=== PATIENT | male | born 1940 | race Caucasian/White ===

== ENCOUNTER 2020-12-04 09:07 | Day surgery (SDC) | payer MEDICARE, BC ==
[2020-12-01 08:36] VITALS: BMI 31.8
[~2020-12-04 09:07] MED LIST: DEXAMETHASONE SOD PHOSPHATE 4 MG/ML 1 ML VIAL IV ONE; DEXAMETHASONE SOD PHOSPHATE 4 MG/ML 1 ML VIAL IV PRN; FAMOTIDINE 20 MG/2 ML VIAL IV PRN; LACTATED RINGERS 1,000 ML IV SCH; ONDANSETRON 4 MG/2 ML VIAL IVP ONE; ONDANSETRON 4 MG/2 ML VIAL IVP PRN; OXYMETAZOLINE 0.05% NASL SPRAY 1 SPRAY BOTTLE EA NOSTRIL PRN
[2020-12-04 10:29] LABS: Glucose,Whole Blood 136 mg/dL (75-99)
[2020-12-04] MEDS ORDERED: SUCCINYLCHOLINE CHLORIDE VIAL 200 MG/10 ML VIAL IV ONE (11:18)
[2020-12-04] MEDS ORDERED: MIDAZOLAM 2 MG/2 ML VIAL ONE (11:18)
[2020-12-04] MEDS ORDERED: fentaNYL (PF) 50 MCG/ML 2 ML AMP ONE (11:18)
[2020-12-04] MEDS ORDERED: DEXAMETHASONE SOD PHOSPHATE 10 MG/ML 1 ML VIAL ONE (11:18)
[2020-12-04] MEDS ORDERED: PROPOFOL 10 MG/ML 20 ML VIAL IV ONE (11:18)
[2020-12-04] MEDS ORDERED: LIDOCAINE 1% INJ 10MG/ML (20 ML MDV) ONE (11:18)
[2020-12-04] MEDS ORDERED: ePHEDrine SULFATE/0.9% NACL/PF 50 MG/5 ML SYRINGE IV ONE (11:18)
[2020-12-04] MEDS ORDERED: LIDOCAINE 1%-EPI 1:100,000 20 ML VIAL SUBMUCOSAL ONE ×3 (11:44→11:46)
[2020-12-04] MEDS ORDERED: BUPIVACAINE-EPI 0.5%-1:200,000 10 ML VIAL SQ ONE ×3 (11:45→11:46)
[2020-12-04] MEDS ORDERED: BACITRACIN ZINC 500 UNIT/GM OINT 28.4 GM TUBE TOPICAL ONE (11:45)
[2020-12-04 12:49] VITALS: TEMP 96.8
--- NOTE | 2020-12-04 12:51 | P.OP ---
Date of Procedure: 12/04/20 Preoperative Diagnosis: Chronic sinusitis, deviated nasal septum, left-sided nasal polyp Postoperative Diagnosis: Same Procedure(s) Performed: Functional endoscopic sinus surgery with polypectomy and septoplasty Anesthesia: KEYONNA Surgeon: Med Lopez Estimated Blood Loss (ml): 10 Pathology: other (Sinonasal) Condition: stable Disposition: PACU Indications for Procedure: This patient has chronic sinusitis and what appeared to be a polyp on the left side. He has bilateral sinus disease with the left side is significantly worse. He was also found have a severe left septal deviation with obstruction. He has failed medical therapy and wished to proceed forward with sinus surgery. All risks, benefits, and alternative therapies were discussed. Consent was obtained and all questions were answered. Operative Findings: Patient had a severe left septal deviation. In addition the patient was found have a left-sided polyp with obstruction and bilateral sinus disease. Description of Procedure: This patient was taken to the operative room placed in the supine position. A general inhalation anesthetic was administered the patient by mask and subsequently intubated with a cuffed endotracheal tube by the department of anesthesia with a functioning IV line in place. The patient was monitored throughout the entire case by the department of anesthesia. 10 minutes were allowed wait for full vasoconstrictive effects to take place. The inferior turbinate septum lateral nasal wall were injected with lidocaine 1% with epinephrine 1 100,010 minutes were allowed wait for full vasoconstrictive effects to take place. At this time a caudal incision was made over the caudal portion of the left septum down to the mucoperichondrium. A mucoperichondrial flap was developed to the extent of visualization on the left and a crossover incision was made with for the mucoperichondrial flap development to the extent of visualization on the contralateral side. Septum was straightened and placed back in the midline. The incision was closed with a 4 rapid Vicryl in a quilting stitch was used to reapproximate the septal flaps. After the septum was straightened and placed back in the midline, we opened up the maxillary sinuses bilaterally on the left side was med pus and purulent material. Polyp was removed and sent for frozen section we continued our dissection into the ethmoid air cells and did a total ethmoidectomy was performed bilaterally. This was all done with endoscopic visualization. Left side was much worse on the right side but the sinuses were opened both ethmoid and maxillary all ethmoid septations were removed. The polyp was removed on the left side totally and the maxillary sinuses were inspected and the ethmoid sinuses were inspected. After total ethmoidectomy and maxillary antrostomy was performed I xerogel was placed bilaterally. We then inserted splints at the end of the case the patient tolerated this well and follow-up will be in the office in one week the patient is to contact me if any from should arise.
[2020-12-04] MEDS: HYDROmorphone 0.5 MG/0.5 ML SYRINGE IVP PRN ×4 (13:04→13:33)
[2020-12-04 13:16] LABS: Glucose,Whole Blood 149 mg/dL (75-99)
[2020-12-04] MEDS ORDERED: LACTATED RINGERS 1,000 ML IV ONE ×2 (13:29)
[2020-12-04 14:15] VITALS: RESP 18
[2020-12-04 15:07] VITALS: BP 148/78; PULSE 78
== END 2020-12-04 16:00 | disposition home or self-care (01) ==
LOC: OR 09:07
PROVIDERS: ATTEND Otolaryngology
DX: J32.9 Chronic sinusitis, unspecified (principal); J34.2 Deviated nasal septum; J33.9 Nasal polyp, unspecified; I11.0 Hypertensive heart disease with heart failure; I50.9 Heart failure, unspecified; E11.9 Type 2 diabetes mellitus without complications; E78.00 Pure hypercholesterolemia, unspecified; E78.5 Hyperlipidemia, unspecified; I25.2 Old myocardial infarction; I25.10 Atherosclerotic heart disease of native coronary artery without angina pectoris; I48.91 Unspecified atrial fibrillation; F32.9 Major depressive disorder, single episode, unspecified; F41.9 Anxiety disorder, unspecified; E66.9 Obesity, unspecified; G47.33 Obstructive sleep apnea (adult) (pediatric); Z79.01 Long term (current) use of anticoagulants; Z79.84 Long term (current) use of oral hypoglycemic drugs; Z79.899 Other long term (current) drug therapy; Z83.3 Family history of diabetes mellitus; Z82.61 Family history of arthritis; Z83.42 Family history of familial hypercholesterolemia; Z95.5 Presence of coronary angioplasty implant and graft; Z95.0 Presence of cardiac pacemaker; Z96.60 Presence of unspecified orthopedic joint implant; Z99.89 Dependence on other enabling machines and devices
CPT/HCPCS: 88305; 88331; 88300; 30520; 31256; 31255; J2250; J0330; J1100 ×2; J2405; J0690; J2001; J3010; J2704; J1170

== ENCOUNTER → 2021-03-03 | Outpatient (CLI) | payer MEDICARE, BC ==
--- NOTE | 2021-03-04 08:28 | CT ---
EXAMINATION TYPE: CT lumbar spine wo con DATE OF EXAM: 03/03/2021 COMPARISON: None HISTORY: chronic low back pain CT DLP: 1520.[address] of the lumbar spine was performed. Bone and soft tissue window settings are submitted as well as coronal and sagittal reconstructions. L1-L2: Moderate degenerative disc space narrowing. Ventral spondylosis. Mild posterior disc bulge. No evidence for disc herniation, protrusion or central stenosis. Facet joint arthropathy without forami nal encroachment. L2-L3: Moderate degenerative disc space narrowing. Ventral spondylosis. Mild posterior disc bulge. No evidence for disc herniation, protrusion or central stenosis. Facet joint arthropathy without forami nal encroachment. L3-L4: Moderate degenerative disc space narrowing. Moderate posterior disc bulge. Hypertrophy ligamen lui flavum and facet joint arthropathy resulting in moderate central stenosis. Bilateral foraminal en croachment. L4-L5: Moderate degenerative disc space narrowing. Moderate posterior disc bulge. Hypertrophy ligamen lui flavum and facet joint arthropathy resulting in moderate central stenosis. Bilateral foraminal en croachment. L5-S1: Moderate degenerative disc space narrowing posterior disc bulge. Right lateral recess stenosis . Large anterior spurs. Bilateral foraminal encroachment. No paraspinal masses are identified. Lumbar segments are free if fracture. IMPRESSION: 1. Multilevel degenerative disc disease. 2. 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
--- NOTE | 2021-03-04 08:37 | CT ---
EXAMINATION TYPE: CT cervical spine wo con DATE OF EXAM: 03/03/2021 COMPARISON: None HISTORY: chronic neck pain CT DLP: 616.[address] of the cervical spine was performed with bone and soft tissue window settings submitted . Coronal and sagittal reconstruction is obtained. C2-3: Ventral and dorsal spur formation. Disc spaces well preserved. No herniation protrusion or cent ral stenosis. C3-4: Large Ventral spurs and smaller dorsal spur formation. Disc spaces well preserved. No herniatio n protrusion or central stenosis. C4-5: Moderate degenerative disc space narrowing. Large ventral and dorsal spurs. Effacement ventral thecal sac resulting in central stenosis. Facet joint arthropathy resulting in bilateral foraminal en croachment. C5-6:Moderate degenerative disc space narrowing. Large ventral and dorsal spurs. Effacement ventral t hecal sac resulting in central stenosis. Facet joint arthropathy resulting in bilateral foraminal enc roachment. C6-7: Moderate degenerative disc space narrowing. Ventral and dorsal spondylosis. No evidence for her niation or central stenosis. No foraminal encroachment. C7-T1: Within normal limits IMPRESSION: 1. Multilevel degenerative disc disease. 2. Multilevel ventral and dorsal spondylosis. Hard disc formation at C4-5 and C5-6 resulting central stenosis.
== END | disposition home or self-care (01) ==
LOC: RADCTMAIN 17:06
PROVIDERS: ATTEND Physical Medicine & Rehabilitation
DX: M50.321 Other cervical disc degeneration at C4-C5 level (principal); M48.02 Spinal stenosis, cervical region; M47.812 Spondylosis without myelopathy or radiculopathy, cervical region; M48.061 Spinal stenosis, lumbar region without neurogenic claudication; M51.36 Other intervertebral disc degeneration, lumbar region
CPT/HCPCS: 72125; 72131